=== PATIENT | female | born 1985 | race Two or more races ===

== ENCOUNTER 2024-12-29 09:00 | Outpatient (RCR) | payer MEDICAID, SELFPAY ==
[2024-12-21 10:45] LABS: HCG Qualitative,Urine Negative
--- NOTE | 2024-12-28 09:00 | XR_ITS ---
Examination: Nuclear medicine thyroid scan and uptake Exam date and time: December 28, 2024 0759 hours INDICATIONS: Diagnosis thyroid toxicosis with diffuse goiter without thyroid toxicosis or storm, shortness of breath, outside thyroid sonogram left lobe thyroid nodule TECHNIQUE AND FINDINGS: Oral administration 291 uCi I-123 6 hour uptake 44% normal range 6-24% 24 hour uptake 50.2% normal range 10-36% Homogeneous anterior bilateral oblique thyroid scans IMPRESSION: Elevated thyroid uptake values, this patient is amenable to oral I-131 radiopharmaceutical treatment in the radiology department as clinically warranted
[2024-12-28 09:01] LABS: HCG Qualitative,Urine Negative
== END 2025-01-03 23:59 | disposition home or self-care (01) ==
LOC: SNUC 09:00
PROVIDERS: PCP Physician Assistant; Referring Provider Physician Assistant; Visit Provider Physician Assistant
DX: E07.89 Other specified disorders of thyroid (principal); Z32.00 Encounter for pregnancy test, result unknown
CPT/HCPCS: 78013; 81025; A9516